=== PATIENT | male | born 2000 | race Caucasian/White ===

== ENCOUNTER 2019-02-19 01:05 | Emergency (ER) | payer OTHER ==
[~2019-02-19] VITALS: Ht 167.6 cm; Wt 77.1 kg
[2019-02-19] MEDS ORDERED: KETO10TA2 PO (03:03)
== END 2019-02-19 03:08 | disposition home or self-care (01) ==
LOC: ER 01:05
DX: S60.222A Contusion of left hand, initial encounter (principal); W23.0XXA Caught, crushed, jammed, or pinched between moving objects, initial encounter; Y93.89 Activity, other specified; Y92.89 Other specified places as the place of occurrence of the external cause; Y99.8 Other external cause status